=== PATIENT | female | born 2005 | race Hispanic/Latino ===

== ENCOUNTER 2024-08-21 01:37 | Emergency (ER) | payer OTHER ==
[~2024-08-21] VITALS: Ht 157.5 cm; Wt 71.3 kg
--- NOTE | 2024-08-21 01:41 | ERN ---
ED Note History of Present Illness Stated Complaint: FALL, OB, ABD PAIN Chief Complaint: Multiple Complaints Time Seen by MD: 01:47 Dictation: This is a 18-year-old female who was brought by [employer] agents for evaluation. Apparently this lady is 37.4 weeks and tried to cross the border and was running away from the agents fell twice. It was mostly running on the level ground the 1st time but the 2nd time the ground level was slightly lower. She was complaining of some pain in her thighs and groins. She also reported some nausea during my evaluation. No headache loss of consciousness her OB is in [place] and her due date is 09/05/2024. She admitted to routine care and has not had any related issues. She denies any vaginal bleeding, contractions. Although she said she had back pain to the triage nurse, she totally denied during my evaluation. No injury to head no bony deformities, no ecchymosis no lacerations. She denied any abdominal pain, back pain, gluteal pain or joint pains. No headache diplopia motor weakness or seizure activity She apparently reported that she had some yellowish drainage from her vagina Temperature 97.7 pulse 99 respirations 20 blood pressure 121/79 with a pulse oximetry 100% on room air Allergies: Coded Allergies: No Known Allergies (Unverified Allergy, Unknown, 08/21/24) Home Meds Active Scripts Amoxicillin (Amoxicillin) 500 Mg Tablet, 1 TAB PO TID for 10 Days, #30 TAB 0 Refills Prov:COOKIE DELACRUZ MD 08/21/24 Past Medical History Past Medical History: No Pertinent History Family History: Negative Social History: Negative : 1 Para: 1 RN Note Reviewed/Agreed w/PFSH: Yes Review of System Dictation As described in the history of present illness Constitutional: Negative for fever,chills, and weight loss Eyes: Negative for injury, pain,redness, and discharge ENT: Negative for injury,pain or swelling Cardiovascular: Negative for chest pain, palpitations, and edema Respiratory: Negative for shortness of breath, cough, and wheezing, Abdomen/GI: Negative for abdominal pain, nausea, vomiting, diarrhea, and constipation Back: Negative for injury and pain : Negative for injury, bleeding and discharge MS/Extremity: Negative for injury and deformity Skin: Negative for rash, and discoloration Neuro: Negative for headache, weakness, numbness, tingling, and seizure Psych: Negative for suicide ideation, homicidal ideation, and hallucinations Initial Vital Sign VS Vital Signs Date Time Temp Pulse Resp B/P (MAP) Pulse Ox O2 Delivery O2 Flow Rate FiO2 08/21/24 01:38 97.7 99 20 121/79 100 Room Air 08/21/24 02:24 0 21 Physical Exam Dictation General: awake, alert, NAD Head/Face: Normocephalic, atraumatic Eyes: PERRL, EOMI, vision at baseline ENT: oral cavity clear, TMs clear, no signs of infection poor dentition Neck: Trachea midline, supple, no nuchal rigidity Cardiovascular: RRR, normal S1/S2, No MRGs, no JVD Respiratory: CTAB, no respiratory distress, No rales or wheezes Abdomen: Soft, non-tender, non-distended, normal bowel sounds, no guarding or rebound. Gravid uterus, heart rate on monitoring 140-150 Skin: Warm, dry, normal turgor, no rash MS/Extremity: Pulses equal, no cyanosis, neurovascular intact, FROM Neuro: COAx4, GCS 15, strength 5/5, CN 2-12 intact, normal cerebellar exam, normal gait, Psych: Normal behavior, mood, and affect normal Extremities-trace edema without any palpable cords, Homans sign is negative Pelvic exam-patient was in lithotomy position and I performed a vaginal exam. There was no fluid or discharge no bleeding noted cervix is effaced but closed- exam normal without any obvious vaginitis Results (Laboratory/Radiology) Laboratory/Radiology Laboratory Tests Test 08/21/24 02:50 08/21/24 03:00 Urine Color YELLOW (YELLOW) Urine Appearance CLOUDY (CLEAR) H Urine pH 6.5 (5.0-8.0) Urine Specific [place] 1.021 (1.001-1.031) Urine Protein 50 mg/dL (NEGATIVE) H Urine Glucose (UA) NEGATIVE mg/dL (NEGATIVE) Urine Ketones 150 mg/dL (NEGATIVE) H Urine Occult Blood +- (TRACE) (NEGATIVE) H Urine Nitrate NEGATIVE (NEGATIVE) Urine Bilirubin NEGATIVE mg/dL (NEGATIVE) Urine Urobilinogen 0.2 mg/dL (0.2-1.0) Urine Leukocyte Esterase 500 Jaret/uL (NEGATIVE) H Urine RBC 11-25 /HPF (0-1) H Urine WBC 51-100 /HPF (0-1) H Urine Squamous Epithelial Cells FEW /HPF (0-2) Urine Bacteria RARE /HPF (None Seen) White Blood Count 13.4 K/uL (4.8-10.8) H Red Blood Count 3.56 MIL/uL (4.00-5.50) L Hemoglobin 8.2 g/dL (12.0-16.0) L Hematocrit 26.7 % (36-48) L Mean Corpuscular Volume 75.0 fL (80-100) L Mean Corpuscular Hemoglobin 23.0 pg (27.0-33.0) L Mean Corpuscular Hemoglobin Concent 30.7 g/dL (32.0-36.0) L Red Cell Distribution Width 15.9 % (11.0-15.5) H Platelet Count 250 K/uL (130-400) Mean Platelet Volume 8.8 fL (7.5-10.5) Immature Granulocyte % (Auto) 0.4 % (0-1) Neutrophils (%) (Auto) 76.6 % (40.0-77.0) Lymphocytes (%) (Auto) 16.3 % (21.0-51.0) L Monocytes (%) (Auto) 6.3 % (3.0-13.0) Eosinophils (%) (Auto) 0.1 % (0.0-8.0) Basophils (%) (Auto) 0.3 % (0.0-5.0) Neutrophils # (Auto) 10.2 K/uL (1.8-7.7) H Lymphocytes # (Auto) 2.2 K/uL (1.0-4.8) Monocytes # (Auto) 0.8 K/uL (0.1-1.0) Eosinophils # (Auto) 0.01 K/uL (0.00-0.70) Basophils # (Auto) 0.04 K/uL (0.00-0.20) Absolute Immature Granulocyte (auto 0.06 K/uL (0-1) Nucleated Red Blood Cells 0.1 % (0.0-0.19) Red Blood Cell Morphology See comments Sodium Level 139 mmol/L (136-145) Potassium Level 3.4 mmol/L (3.5-5.1) L Chloride Level 103 mmol/L (101-111) Carbon Dioxide Level 22 mmol/L (21-32) Blood Urea Nitrogen 6 mg/dL (7-18) L Creatinine 0.4 mg/dL (0.5-1.0) L Glomerular Filtration Rate Calc 145 mL/min (>90) Random Glucose 79 mg/dL (70-105) Total Calcium 8.9 mg/dL (8.5-10.1) Labs Reviewed?: Yes Ultrasound Comment: OB ultrasound done on 08/21/2024 Radiology reading-single live intrauterine in cephalic position/presentation Estimated age is 36 weeks 1 day Normal heart rate of 137 breaths per minute Normal amount of amniotic fluid for age Posterior left lateral placenta without previa or abruption No free fluid. ED Course ED Course Orders Procedure Category Date Status Time Cbc With Differential LAB 08/21/24 Complete 01:41 Basic Metabolic Panel LAB 08/21/24 Complete 01:41 Urinalysis LAB 08/21/24 Complete W/Microscopic 01:41 Us Ob >14 Weeks US 08/21/24 Resulted 01:41 0.9%Nacl 1000ml (Ns PHA 08/21/24 Complete 1000ml) 03:00 Ondansetron 4mg Inj PHA 08/21/24 Complete (Zofran 4mg Inj) 03:00 Culture Urine KENDAL 08/21/24 In Process 02:50 Ceftriaxone 1g Vial PHA 08/21/24 Complete (Rocephine 1g Inj) 05:00 Potassium Bicarb/Cit PHA 08/21/24 Complete Ac 25meq (K-Lyte Ta 05:00 Current Medications Medications (Trade) Dose Ordered Sig/Joellen Route PRN Reason Start Time Stop Time Status Last Admin Dose Admin Ceftriaxone Sodium (ROCEphine 1G INJ) 1 gm ONCE ONCE IVPB 08/21/24 05:00 08/21/24 05:01 DC 08/21/24 04:49 Ondansetron HCl (zoFRAN 4MG INJ) 4 mg ONCE ONCE IVP 08/21/24 03:00 08/21/24 03:01 DC 08/21/24 03:47 Potassium Bicarbonate (K-Lyte Tablet Eff 25 Meq Tablet.eff) 25 meq ONCE ONCE PO 08/21/24 05:00 08/21/24 05:01 DC 08/21/24 04:49 Sodium Chloride 1,000 ml @ 0 mls/hr ONCE ONCE IV 08/21/24 03:00 08/21/24 03:01 DC 08/21/24 03:47 Vital Signs Date Time Temp Pulse Resp B/P (MAP) Pulse Ox O2 Delivery O2 Flow Rate FiO2 08/21/24 05:04 97.9 91 16 112/61 100 Room Air* 0 21 08/21/24 03:37 95 16 114/66 100 Room Air* 0 21 08/21/24 02:24 93 16 112/66 100 Room Air* 0 21 08/21/24 01:38 97.7 99 20 121/79 100 Room Air We will perform diagnostic labs, advanced imaging and administer medications according to the patient's complaint. Once the results are available, will review and personally interpreted the labs to rule out any acute life- threatening emergency the trach require immediate intervention and treatment. I will then re-evaluate the patient after treatment and diagnostic exams have return to determine whether the patient requires any further testing, can safely be discharged home or need further admission to hospital for additional treatment and evaluation. Reviewed labs CBC showed a white count of 13.4 hemoglobin 8.2 platelets 250 BNP 7 is significant for a potassium of 3.4 BUN and creatinine are 6 and 0.4 urinalysis was very abnormal with positive leuko esterase and too numerous to count white cells. Ob ultrasound was done which showed a fetus of 36 weeks and 1 day duration no acute abnormalities were noted. She received IV fluids, empiric antibiotic was given for a UTI and she is medically cleared with outpatient antibiotic prescription printed and given to the [facility]. She will be discharged to custody of the [facility]. Medical Decision Making MDM MDM: Differential diagnosis: Fall with contusion-no obvious Rationale: Tests considered and ordered secondary to shared decision making include: Previous outside records reviewed: Old ER visits. Risk of complication and/or morbidity or mortality of patient management: None Medications-Per medication reconciliation Need for hospitalization: Patient does not meet criteria for hospitalization. Need for emergency major/minor surgery: No There are no social concerns with this patient. Prescription drug management Prescriptions will include symptomatic care Patient's prior external medical records from other ER visits were reviewed by me as indicated. Prior testing and results from previous visits were reviewed. Prior tests were taken into account with medical decision making and resource utilization, independent historian/historians were used to obtain complete medical history. I independently interpreted the test that were performed, results were reviewed by me and considered findings on radiology if ordered. Medical management and examination interpretation discussions were had by me with other qualified healthcare professionals as indicated for the patient's care. Problem List Problem List: (1) Ground-level fall (2) Intrauterine (3) UTI (urinary tract infection) DX & DISP Disposition: Discharge Departure Impression: Primary Impression: Intrauterine Additional Impressions: Ground-level fall, UTI (urinary tract infection) Condition: Stable Scripts Amoxicillin (Amoxicillin) 500 Mg Tablet 1 TAB PO TID for 10 Days, #30 TAB 0 Refills Prov: COOKIE DELACRUZ MD 08/21/24 Additional Instructions: Patient and the caregiver have been informed of all the diagnostic tests and the imaging conducted during the today's visit to the emergency room and has verbalized understanding of the results I have personally reviewed and interpreted all diagnostic exams performed here in the ER today as well as the vital signs documented by the nursing staff. The patient is now being discharged to [facility] and should follow up with the primary care physician or the specialist as directed by the ER staff. COOKIE DELACRUZ MD Aug 21, 2024 01:41
--- NOTE | 2024-08-21 01:46 | NUR ---
UA CUP PROVIDED
--- NOTE | 2024-08-21 02:18 | NUR ---
TOCODYNAMOMETER PLACED ON PATIENT, HR 140'S, STRONG AND REGULAR, NO CONTRACTIONS NOTED ON MONITOR. PATIENT IN SEMI FOWLERS POSITION ON STRETCHER, DENIES PAIN IN THIS POSITION. REPORTS PAIN WITH AMBULATION TO UPPER THIGHS AND LOWER PELVIS. NO VAGINAL BLEEDING OR DISCHARGE NOTED, U/S AT BEDSIDE.
[2024-08-21 03:10] LABS: BASOPHILS # (AUTO) 0.04 K/uL (0.00-0.20); BASOPHILS % (AUTO) 0.3 % (0.0-5.0); EOSINOPHILS # (AUTO) 0.01 K/uL (0.00-0.70); EOSINOPHILS % (AUTO) 0.1 % (0.0-8.0); HEMATOCRIT 26.7 % (36-48); IMMATURE GRANULOCYTE ABSOLUTE 0.06 K/uL (0-1); LYMPHOCYTES # (AUTO) 2.2 K/uL (1.0-4.8); LYMPHOCYTES % (AUTO) 16.3 % (21.0-51.0); MEAN CORPUSCULAR HGB CONC 30.7 g/dL (32.0-36.0); MONOCYTES # (AUTO) 0.8 K/uL (0.1-1.0); MONOCYTES % (AUTO) 6.3 % (3.0-13.0); NEUTROPHILS # (AUTO) 10.2 K/uL (1.8-7.7); NEUTROPHILS % (AUTO) 76.6 % (40.0-77.0); NUCLEATED RED BLOOD CELLS 0.1 % (0.0-0.19); PLATELET COUNT (AUTO) 250 K/uL (130-400); RED BLOOD CELL COUNT(AUTO) 3.56 MIL/uL (4.00-5.50); RED CELL DISTRIBUTION WIDTH 15.9 % (11.0-15.5); WHITE BLOOD COUNT (AUTO) 13.4 K/uL (4.8-10.8)
[2024-08-21 03:17] LABS: CREATININE 0.4 mg/dL (0.5-1.0); POTASSIUM 3.4 mmol/L (3.5-5.1)
--- NOTE | 2024-08-21 03:26 | NUR ---
CALLED LAB, SPOKE WITH SHONDA. REQUESTED NITRAZINE STRIPS. STATES DR DELACRUZ IS ONLY STAFF MEMBER THAT CAN USE THEM, NOT FOR NURSE USAGE
--- NOTE | 2024-08-21 03:38 | NUR ---
ASSISTED ER MD WITH BIMANUAL PELVIC EXAM, NO FLUID OR BLOOD NOTED IN VAGINAL CANAL, PER ER MD, CERVIX IS SLIGHTLY EFACED AND CLOSED
[2024-08-21] MEDS: 0.9%NACL 1000ML 1,000 ML IV ONE (03:47)
[2024-08-21] MEDS: ondanSETRON 4MG INJ IVP ONE (03:47)
[2024-08-21 03:52] LABS: APPEARANCE,URINE CLOUDY (CLEAR); BACTERIA,URINE RARE /HPF (None Seen); BILIRUBIN,URINE NEGATIVE (NEGATIVE); COLOR,URINE YELLOW (YELLOW); GLUCOSE, URINE (UA) NEGATIVE (NEGATIVE); KETONES,URINE 150 mg/dL (NEGATIVE); LEUKOCYTE ESTERASE ,URINE 500 Leu/uL (NEGATIVE); MUCUS,URINE MOD LPF (None Seen); NITRATE,URINE NEGATIVE (NEGATIVE); PH,URINE 6.5 (5.0-8.0); PROTEIN,URINE 50 mg/dL (NEGATIVE); SQUAMOUS EPITHELIAL CELL,UR FEW /HPF (0-2); UROBILINOGEN,URINE 0.2 mg/dL (0.2-1.0); WBC,URINE 51-100 /HPF (0-1)
[2024-08-21] MEDS: cefTRIAXone 1G VIAL IVPB ONE (04:49)
[2024-08-21] MEDS: PoTASSium BIcarbonate/CIT AC 25 MEQ TABLET.EFF PO ONE (04:49)
[2024-08-21 05:04] VITALS: BP 112/61; PULSE 91; RESP 16; TEMP 97.8; O2SAT 100
[2024-08-21] MEDS ORDERED: AMOX500T2 PO (05:10)
--- NOTE | 2024-08-21 08:52 | HMCIMG ---
US OB >14 WEEKS HISTORY: COMPARISON: None TECHNIQUE: ultrasound study was performed. FINDINGS: There is single intrauterine gestation with estimated gestational age of 36 weeks and 1 day. heart rate is 137 beats per minute. The fetus is in cephalic presentation with longitudinal lie. weight is estimated to be 2910 grams. Amniotic fluid volume is 12.4 centimeter. The placenta is located posteriorly. No evidence of placenta previa is seen. There is no evidence of nuchal cord. Prominent placental perfusion is seen in the basal chorionic plate. Clinical correlation is recommended. IMPRESSION: 1. There is single intrauterine gestation with estimated gestational age of 36 weeks and 1 day. heart rate is 137 beats per minute.
== END 2024-08-21 05:16 ==
LOC: EDH 01:37 → EEVIPCON 01:37 → EDH 05:16
DX: O23.43 Unspecified infection of urinary tract in pregnancy, third trimester (principal); N39.0 Urinary tract infection, site not specified; Z3A.37 37 weeks gestation of pregnancy
CPT/HCPCS: 99285; 96374; 76805; 96375; 80048; 85025; 87086; 81001; 36415; J7030; J0696; J2405